=== PATIENT | male | born 1970 | race Caucasian/White ===

== ENCOUNTER 2021-11-21 16:53 | Emergency (ER) | payer OTHER ==
[~2021-11-21] VITALS: Ht 177.8 cm; Wt 99.8 kg
--- NOTE | 2021-11-21 17:00 | NUR ---
TO ER BED 1, MAHAD LAWSON, "MAY HAVE TAKEN SOMETHING, NEED TO CHECK ON HIM", PT DENIES TAKING ANYTHING, AWAITING MD PEARL
--- NOTE | 2021-11-21 17:56 | NUR ---
LILIAN [id number] AT BEDSIDE
[2021-11-21 18:30] VITALS: BP 122/71
--- NOTE | 2021-11-21 20:34 | NUR ---
Patient does not wish to proceed with medical care recommended by Dr. Manzo. Patient given information related to possible complications, up to and including , which could occur as a result of leaving the hospital at this time. Patient verbalizes understanding of risks involved due to leaving against medical advice with [employer]. Patient has signed AMA form.
== END 2021-11-21 20:37 ==
LOC: ER 16:56
DX: Z02.89 Encounter for other administrative examinations (principal); H57.02 Anisocoria